=== PATIENT | male | born 1980 | race African-American/Black ===

== ENCOUNTER 2019-08-09 15:36 | Emergency (ER) | payer OTHER, BC ==
--- NOTE | 2019-08-09 15:49 | ER Document Report ---
ED Medical Screen (RME) - General Chief Complaint: Headache Stated Complaint: HEADACHE Time Seen by Provider: 08/09/19 15:42 Primary Care Provider: FRANSISCA SYED PA [Primary Care Provider] - Follow up as needed Mode of Arrival: Ambulatory Information source: Patient Notes: 39-year-old male presented to ED for complaint of massive headache since . He states he took Goody's powder this morning with no relief. He states he does have a history of high blood pressure high cholesterol sleep apnea degenerative disc disease and chronic pain. He states he is on naproxen and Flexeril for his chronic pain. He does not go to pain management. He does work at [employer] on [address]. He states he has never had headaches before. He is not having sensitivity to light or noise or movement. He is nauseated. His blood pressure is 147/85. I will have him examined by another provider get some blood and urine. I have greeted and performed a rapid initial assessment of this patient. A comprehensive ED assessment and evaluation of the patient, analysis of test results and completion of medical decision making process will be conducted by an additional ED providers. - Related Data Allergies/Adverse Reactions: Penicillins Allergy (Verified 03/29/11 13:37) Past Medical History - Past Medical History Cardiac Medical History: Reports: Hx Hypercholesterolemia, Hx Hypertension Past Surgical History: Reports: Hx Nose Surgery - rhinoplasty/septoplasty - Immunizations Hx Diphtheria, Pertussis, Tetanus Vaccination: Yes Physical Exam - Vital signs Vitals: Temp Pulse Resp BP Pulse Ox 98.6 F 82 18 147/85 H 99 08/09/19 15:42 08/09/19 15:42 08/09/19 15:42 08/09/19 15:42 08/09/19 15:42 Course - Vital Signs Vital signs: Temp Pulse Resp BP Pulse Ox 98.6 F 82 18 147/85 H 99 08/09/19 15:42 08/09/19 15:42 08/09/19 15:42 08/09/19 15:42 08/09/19 15:42 Doctor's Discharge - Discharge Referrals: FRANSISCA SYED PA [Primary Care Provider] - Follow up as needed
[2019-08-09] MEDS ORDERED: NORMAL SALINE 1000 ML 1,000 ML IV ONE (16:12)
[2019-08-09] MEDS ORDERED: DIPHENHYDRAMINE HCL 50 MG/ML VIAL IV ONE (16:12)
[2019-08-09] MEDS ORDERED: METOCLOPRAMIDE HCL INJ/PF 10 MG/2 ML SDV IV ONE (16:12)
--- NOTE | 2019-08-09 16:15 | ER Document Report ---
ED Headache - General Chief Complaint: Headache Stated Complaint: HEADACHE Time Seen by Provider: 08/09/19 15:42 Primary Care Provider: FRANSISCA SYED PA [Primary Care Provider] - Follow up as needed Mode of Arrival: Ambulatory Notes: CHIEF COMPLAINT: Headache for 2 days HPI: 39-year-old male who is otherwise healthy presenting to the emergency department complaining of generalized headache with sudden onset of the headache 2 days ago. No vision change. Has had nausea no vomiting. Describes the headache as generalized in nature. Denies posterior neck pain. Denies fever or recent illness. No cough chest pain shortness of breath. Denies vision change. Denies weakness numbness or tingling in the extremities. Denies dizziness. Position and movement do not change the character of the headache he has not taken any significant medications for the headache. ROS: See HPI - all other systems were reviewed and are otherwise negative Constitutional: no fever Eyes: no drainage, no blurred vision ENT: no runny nose, no sore throat Cardiovascular: no chest pain Resp: no SOB, no cough GI: no vomiting, no diarrhea, no abdominal pain, positive nausea : no dysuria Integumentary: no rash Allergy: no hives Musculoskeletal: no extremity pain or swelling Neurological: no numbness/tingling, no weakness, positive headache MEDICATIONS: I agree with the patient medications as charted by the RN. ALLERGIES: I agree with the allergies as charted by the RN. PAST MEDICAL HISTORY/PAST SURGICAL HISTORY: Reviewed and agree as charted by RN. SOCIAL HISTORY: Reviewed and agree as charted by RN. FAMILY HISTORY: No significant familial comorbid conditions directly related to patient complaint EXAM: Reviewed vital signs as charted by RN. CONSTITUTIONAL: Alert and oriented and responds appropriately to questions. Well-appearing; well-nourished HEAD: Normocephalic; atraumatic EYES: PERRL; Conjunctivae clear, sclerae non-icteric. No photophobia. No nystagmus. ENT: normal nose; no rhinorrhea; moist mucous membranes; pharynx without lesions noted, no uvula edema or deviation, no tonsillar hypertrophy, phonation normal NECK: Supple without meningismus; non-tender; no cervical lymphadenopathy, no masses CARD: RRR; no murmurs, no clicks, no rubs, no gallops; symmetric distal pulses RESP: Normal chest excursion without splinting or tachypnea; breath sounds clear and equal bilaterally; no wheezes, no rhonchi, no rales, pulse oximetry 99% on room air not hypoxic ABD/GI: Normal bowel sounds; non-distended; soft, non-tender, no rebound, no guarding; no palpable organomegaly or masses. BACK: The back appears normal and is non-tender to palpation, there is no CVA tenderness EXT: Normal ROM in all joints; non-tender to palpation; no cyanosis, no effusions, no edema SKIN: Normal color for age and race; warm; dry; good turgor; no acute lesions noted NEURO: Moves all extremities equally; Motor and sensory function intact. Face symmetric. Tongue protrudes midline. Extraocular motions intact. Pupils are 3 mm and equally reactive. Normal speech, normal gait. 5 out of 5 strength in both the distal and proximal upper and lower extremities bilaterally. Sensation is grossly intact throughout. Finger to nose testing normal. Pronator drift normal. PSYCH: The patient's mood and manner are appropriate. Grooming and personal hygiene are appropriate. MDM: 39-year-old male with sudden onset generalized headache with no history of headaches. Nothing makes the headache better or worse. No fever or neck pain to suggest meningitis. Initial screening labs ordered in triage. We will plan to treat patient with Reglan Benadryl initially. Will obtain CT given the fairly sudden onset, lack of significant headache history to evaluate for bleed. Neurologically intact. - Related Data Allergies/Adverse Reactions: Penicillins Allergy (Verified 03/29/11 13:37) Past Medical History - General Information source: Patient - Social History Smoking Status: Never Smoker Family History: Reviewed & Not Pertinent Patient has suicidal ideation: No Patient has homicidal ideation: No - Past Medical History Cardiac Medical History: Reports: Hx Hypercholesterolemia, Hx Hypertension Past Surgical History: Reports: Hx Nose Surgery - rhinoplasty/septoplasty - Immunizations Hx Diphtheria, Pertussis, Tetanus Vaccination: Yes Physical Exam - Vital signs Vitals: Temp Pulse Resp BP Pulse Ox 98.6 F 82 18 147/85 H 99 08/09/19 15:42 08/09/19 15:42 08/09/19 15:42 08/09/19 15:42 08/09/19 15:42 Course - Re-evaluation Re-evalutation: 08/09/19 16:40 CT of the head negative for acute bleed, I discussed lumbar puncture with the patient indications, risk factors. Patient verbalizes understanding and agreement with the procedure to evaluate for subarachnoid bleed. Awaiting lab work currently. 08/09/19 17:56 Attempted lumbar puncture x1 with sterile field, was unable to advance needle past 3.5 cm with a spinous process, spoke with Dr. Jak Espino attending who also attempted and was unable to enter the spinal canal for specimen. Spoke with Steve the radiology PA on-call he states that they will be able to do the lumbar puncture with fluoroscopy in approximately 1 hour. I did speak with anesthesiology prior to calling radiology but they indicated that they had an OR case and could not assist with an LP 08/09/19 20:54 Patient CSF results do not suggest evidence of bleed or meningitis. Discussed this at length with the patient and his spouse. Patient did have a low-grade fever here this may be a viral etiology still. Will treat patient's pain, he has a primary care provider at the [facility] for follow-up on Sunday - Vital Signs Vital signs: Temp Pulse Resp BP Pulse Ox 101.3 F H 86 16 142/89 H 99 08/09/19 20:54 08/09/19 20:54 08/09/19 20:54 08/09/19 20:54 08/09/19 20:54 - Laboratory Result Diagrams: 08/09/19 15:50 08/09/19 15:50 Laboratory results interpreted by me: 08/09/19 08/09/19 08/09/19 15:50 15:50 15:50 WBC 3.7 L Plt Count 118 L Beltrami % (Auto) 18.4 H Sodium 133.5 L Chloride 93 L Glucose 130 H ALT 100 H Total Protein 8.3 H Urine Protein 100 H Urine Urobilinogen 4.0 H CSF Glucose 08/09/19 19:09 WBC Plt Count Beltrami % (Auto) Sodium Chloride Glucose ALT Total Protein Urine Protein Urine Urobilinogen CSF Glucose 80 H Discharge - Discharge Clinical Impression: Headache Qualifiers: Headache type: unspecified Headache chronicity pattern: acute headache Intractability: not intractable Qualified Code(s): R51 - Headache Fever Qualifiers: Fever type: unspecified Qualified Code(s): R50.9 - Fever, unspecified Condition: Stable Disposition: HOME, SELF-CARE Additional Instructions: Take the medications as prescribed, your CT did not show evidence of bleeding, your lumbar puncture did not show evidence of meningitis or bleeding. Follow-up with your primary care provider for reevaluation of symptoms on Sunday call for appointment Prescriptions: Ibuprofen [Motrin 600 Mg Tablet] 600 mg PO Q6H #15 tablet Hydrocodone/Acetaminophen [Garfield 5-325 mg Tablet] 1 tab PO Q4 PRN #15 tablet PRN Reason: Referrals: FRANSISCA SYED PA [Primary Care Provider] - Follow up as needed
[2019-08-09 16:20] LABS: APPEARANCE,URINE CLEAR; BILIRUBIN,URINE NEGATIVE (NEGATIVE); COLOR,URINE AMBER; GLUCOSE, URINE NEGATIVE (NEGATIVE); KETONES,URINE NEGATIVE (NEGATIVE); PROTEIN,URINE 100 mg/dL (NEGATIVE); URINE SPECIFIC GRAVITY 1.026
[2019-08-09 16:22] LABS: ABSOLUTE LYMPHOCYTES (AUTO) 0.8 10^3/uL (0.5-4.7); ABSOLUTE MONOCYTES (AUTO) 0.7 10^3/uL (0.1-1.4); ABSOLUTE NEUT (AUTO) 2.2 10^3/uL (1.7-8.2); BASOPHILS % (AUTO) 0.8 % (0-2); EOSINOPHILS % (AUTO) 0.2 % (0-6); HEMATOCRIT 43.1 % (37.9-51.0); HEMOGLOBIN 14.9 g/dL (13.5-17.0); INTERNATIONAL RATION (INR) 1.09; LYMPHOCYTES % (AUTO) 21.9 % (13-45); MEAN CORPUSCULAR HEMOGLOBIN 27.8 pg (27.0-33.4); MEAN CORPUSCULAR HGB CONC 34.6 g/dL (32.0-36.0); MEAN CORPUSCULAR VOLUME 80 fl (80-97); MONOCYTES % (AUTO) 18.4 % (3-13); PLATELET COUNT 118 10^3/uL (150-450); PROTHROMBIN TIME 14.1 SEC (11.4-15.4); RED BLOOD COUNT 5.37 10^6/uL (4.35-5.55); RED CELL DISTRIBUTION WIDTH 13.1 % (11.5-14.0); SEGMENTED NEUTROPHILS % (AUTO) 58.7 % (42-78); TOTAL CELLS COUNTED % (AUTO) 100 %; WHITE BLOOD COUNT 3.7 10^3/uL (4.0-10.5)
[2019-08-09] MEDS ORDERED: LIDOCAINE 1% INJ-PF (10 MG/ML) 30 ML SDV INJ ONE (16:29)
[2019-08-09 16:30] LABS: ALBUMIN 4.7 g/dL (3.5-5.0); ALKALINE PHOSPHATASE 95 U/L (38-126); ANION GAP 12 (5-19); ASPARTATE AMINO TRANSFERASE 59 U/L (17-59); BILIRUBIN,DIRECT 0.3 mg/dL (0.0-0.4); BILIRUBIN,TOTAL 0.9 mg/dL (0.2-1.3); BLOOD UREA NITROGEN 13 mg/dL (7-20); CALCIUM 9.7 mg/dL (8.4-10.2); CARBON DIOXIDE 29 mmol/L (22-30); CHLORIDE 93 mmol/L (98-107); GLUCOSE 130 mg/dL (75-110); TOTAL PROTEIN 8.3 g/dL (6.3-8.2)
[2019-08-09] MEDS ORDERED: LORAZEPAM 1 MG TABLET PO ONE (16:31)
--- NOTE | 2019-08-09 16:34 | RADIOLOGY REPORT (SQ) ---
EXAM DESCRIPTION: CT HEAD WITHOUT COMPLETED DATE/TIME: 08/09/2019 4:23 pm REASON FOR STUDY: headache COMPARISON: None. TECHNIQUE: Axial images acquired through the brain without intravenous contrast. Images reviewed wi th bone, brain and subdural windows. Images stored on PACS. All CT scanners at this facility use dose modulation, iterative reconstruction, and/or weight based d osing when appropriate to reduce radiation dose to as low as reasonably achievable (ALARA). [facility]: Dose Right [facility]: CareDose [facility]: Dose Right [facility]: Teradose 4D [facility]: Smart Picosun RADIATION DOSE: CT Rad equipment meets quality standard of care and radiation dose reduction techniq ues were employed. CTDIvol: 53.2 mGy. DLP: 991 mGy-cm. mGy. LIMITATIONS: None. FINDINGS: VENTRICLES: Normal size and contour. CEREBRUM: No mass effect. No hemorrhage. No midline shift. Normal lozoya/white matter differentiatio n. No evidence for acute territorial infarction. CEREBELLUM: No mass effect. No hemorrhage. No alteration of density. No evidence for acute infarct ion. EXTRAAXIAL SPACES: No fluid collections. ORBITS AND GLOBE: Symmetrical contour of the globes. CALVARIUM: No depressed skull fracture. PARANASAL SINUSES: No air-fluid level. SOFT TISSUES: No hematoma. IMPRESSION: NO ACUTE INTRACRANIAL IMAGING FINDINGS. EVIDENCE OF ACUTE STROKE: NO. COMMENT: Quality ID # 436: Final reports with documentation of one or more dose reduction techniques (e.g., Automated exposure control, adjustment of the mA and/or kV according to patient size, use of iterative reconstruction technique) TECHNICAL DOCUMENTATION: JOB ID: [id number] 2010 [employer]- All Rights Reserved Reading location - IP/workstation name: [email or web address]
--- NOTE | 2019-08-09 17:46 | ER Document Report ---
Doctor's Note Notes: 08/09/19 17:44 39-year-old male who I was asked to see to help perform a lumbar puncture by the physician religious assistant. Acute onset of a headache. No fevers or vomiting. No double or blurry vision. No weakness or numbness. Full prep and sterile precautions were taken prior to the procedure. I did assist in the lumbar pu ncture and I was able to help with a needle at the L3/L4 lumbar spinal space with the patient in the left lateral decubitus position with knees fully flex to the chest and head downward. Patient felt no pain. I was not able to obtain any spinal fluid even with complete having of the needle. We will call the interventional radiologist to provide fluoro assisted LP.
[2019-08-09] MEDS ORDERED: ACETAMINOPHEN 325 MG TABLET PO ONE (18:54)
[2019-08-09] MEDS ORDERED: ONDANSETRON HCL INJ/PF 4 MG/2 ML SDV IV ONE (19:26)
[2019-08-09] MEDS ORDERED: MORPHINE SULFATE 10 MG/ML INJ IV ONE (19:26)
[2019-08-09 20:36] LABS: COLOR ALL TUBES COLORLESS; CSF TUBE NUMBER 1; GLUCOSE,CSF 80 mg/dL (40-70); PROTEIN,CSF 50 mg/dL (12-60)
[2019-08-09 20:37] LABS: APPEARANCE ALL TUBES CLEAR; CSF TOTAL VOLUME 7.3 CC; RED BLOOD CELL,CSF 7 /uL (0-10); VOLUME TUBE 1 1.5 CC; VOLUME TUBE 4 1.8 CC
[2019-08-09 20:38] LABS: WHITE BLOOD CELL,CSF 5 /uL (0-5)
[2019-08-09 20:39] LABS: CSF TUBE NUMBER 4
[2019-08-09 20:40] LABS: APPEARANCE ALL TUBES CLEAR; COLOR ALL TUBES COLORLESS; CSF TOTAL VOLUME 7.3 CC; RED BLOOD CELL,CSF 0 /uL (0-10); VOLUME TUBE 1 1.5 CC; VOLUME TUBE 4 1.8 CC; WHITE BLOOD CELL,CSF 5 /uL (0-5)
[2019-08-09] MEDS ORDERED: IBUPROFEN 600 MG TABLET PO ONE (20:55)
[2019-08-09] MEDS ORDERED: HYDROCODONE/ACETAMINOPHEN 5-325 MG (6 TAB/ER DISP) PO PRN (20:56)
[2019-08-09 20:59] VITALS: BP 142/89
--- NOTE | 2019-08-11 08:01 | RADIOLOGY REPORT (SQ) ---
EXAM DESCRIPTION: LUMBAR PUNCTURE COMPLETED DATE/TIME: 08/09/2019 7:56 pm REASON FOR STUDY: eval for subarachnoid blood COMPARISON: None. FLUOROSCOPY TIME: 4 seconds 2 images saved to PACS. TECHNIQUE: Fluoroscopic guided lumbar puncture with opening and closing pressures. LIMITATIONS: None. PROCEDURE: After written consent and assessment were obtained, the patient was brought into the fluo roscopy room and placed prone on the table. The patient's lower back was prepped in a sterile fashion and an entry site was selected under live fluoroscopic guidance. The entry site was anesthetized wit h 1% lidocaine. A 20 gauge needle was advanced through the skin and into the thecal sac at the level of L 3 -L 4 . An opening pressure of 33 units was obtained. After approximately 8.5 ml of CSF was yuri ined, a closing pressure of 25 units was obtained. The needle was removed and a sterile bandage was p laced of the site. Specimens were sent to the lab for testing. A fluoroscopic spot image was saved to PACS confirming level access. FINDINGS: Clear CSF IMPRESSION: Lumbar puncture under fluoroscopy. No immediate complication. COMMENT: Patient medication list reviewed: Yes- Quality ID# [id number]:Eligible professional attests to doc umenting in the medical record they obtained, updated, or reviewed the patient's current medications. Quality ID 145: Final reports for procedures using fluoroscopy that document radiation exposure indic es, or exposure time and number of fluorographic images (if radiation exposure indices are not availa ble) TECHNICAL DOCUMENTATION: Job ID: [id number] 2010 [employer]- All Rights Reserved Reading location - IP/workstation name: [email or web address]
== END 2019-08-09 21:13 | disposition home or self-care (01) ==
LOC: ER 15:36
DX: R51 Headache (principal); R50.9 Fever, unspecified; R11.0 Nausea; I10 Essential (primary) hypertension; G89.29 Other chronic pain; Z79.899 Other long term (current) drug therapy; Z88.0 Allergy status to penicillin
CPT/HCPCS: 99284; 96361; 96374; 96375; 36415; 87070; 87205; 83690; 85025; 85610; 89050; 82945; 84157; 80053; 81001; 62328; 70450; J1200; J3490; J2765; J2270; J2405; J7030